=== PATIENT | female | born 1975 | race Two or more races ===

== ENCOUNTER 2022-11-11 15:06 | Emergency (ER) | payer OTHER ==
[~2022-11-11] VITALS: Ht 170.2 cm; Wt 66.7 kg
[2022-11-11] MEDS ORDERED: METROPOLOL (16:07)
[2022-11-11] MEDS ORDERED: ADVIL DUAL ACT1 EACH PO (19:47)
== END 2022-11-11 20:01 | disposition home or self-care (01) ==
LOC: ER 15:06
PROVIDERS: Emergency Medicine
DX: M54.89 Other dorsalgia (principal); I10 Essential (primary) hypertension; Z88.0 Allergy status to penicillin; Z88.2 Allergy status to sulfonamides; Z88.8 Allergy status to other drugs, medicaments and biological substances